=== PATIENT | female | born 1950 | race Caucasian/White ===

== ENCOUNTER → 2021-02-11 13:12 | Outpatient (CLI) | payer MEDICARE, OTHER, SELFPAY ==
--- NOTE | ~2021-02-11 | DEXA_ITS ---
Bone Density Report Name: PERLITA SANTOS Age: 70 Sex: Female Ethnicity: White Date of : 1950 Indication: postmenopausal; screening for osteoporosis; height loss; prior fracture; Referring Provider: Nick, Sandra Rodriguez Study: Bone densitometry was performed. Exam Date: February 11, 2021 Accession number: [id number] Bone Density: Region BMD T-score Z-score Classification AP Spine (L1-L4) 1.101 0.5 2.5 Normal Femoral Neck (Left) 0.616 -2.1 -0.4 Osteopenia Total Hip (Left) 0.766 -1.4 0.0 Osteopenia World Health Organization criteria for BMD impression classify patients as: Normal (T-score at or above -1.0), Osteopenia (T-score between -1.0 and -2.5), or Osteoporosis (T-score at or below -2.5). 10-year Fracture Risk: FRAX not reported because: Prior hip or vertebral fracture Clinical Information Provided by Patient: Have had a previous hip or vertebral fracture Has had a low trauma fracture Has used the following medications: Vitamin D, Calcium Patient maximum height was 68 Menopause Age: 57 Drinks caffeinated beverages Onset of menses at age 15 Number of children 3 Impression: The patient has low bone mass, based on the Left Femoral Neck T-score. The patient has risk factors, including: previous fracture. Discussion: INCREASED RISK OF FRACTURE DUE TO HISTORY OF FRACTURE. The patient's previous fracture puts the patient at high risk of a future fracture. In untreated patients, the risk of osteoporotic fracture increases approximately two-fold for each 1.0 SD decrease in T-score. Low bone density is not the only risk factor for fracture; also consider factors such as patient's age, frailty or poor health, risk of falling, risk of injury, previous osteoporotic fracture, family history of osteoporosis, cigarette smoking, low body weight, etc. Not everyone with a low trauma fracture has osteoporosis; osteomalacia and other metabolic bone disorders should also be considered. Patients who have osteoporosis should be evaluated for specific diseases and conditions (secondary causes) that may cause or contribute to bone loss and fracture risk. National Osteoporosis Foundation (NOF) recommends pharmacologic intervention for patients with a prior hip or vertebral fracture regardless of BMD T-score. The patient should follow a healthful lifestyle (good nutrition with adequate calcium and vitamin D, and appropriate weight-bearing exercise). Follow-Up: Consider a repeat BMD and Vertebral Fracture Assessment (VFA) exam in 2 years or sooner if medically necessary, to reassess this patient's status. Reported by: [facility] on 02/11/2021 2:04:00 PM. Reviewed, dictated and finalized at location [employer] [facility]
--- NOTE | ~2021-02-11 | MM_ITS ---
EXAMINATION: MM screening dariel BI w jacinda HISTORY: Screening mammogram TECHNIQUE: Craniocaudal and mediolateral oblique 3-D tomosynthesis images were obtained and synthetic 2-D images were generated. CAD analysis was submitted and interpreted. COMPARISON: No prior mammogram is available for comparison at this institution. BREAST PARENCHYMAL COMPOSITION: There are scattered areas of fibroglandular density. FINDINGS: RIGHT BREAST: There are indeterminate grouped calcifications in the posterior third of the outer joslyn st 9 cm from the nipple in the posterior third of the upper inner breast 10 cm from the nipple. LEFT BREAST: There are grouped indeterminate calcifications in the posterior third of the lower-outer breast. A mass is present in the middle third upper breast at the 12:00 location 5 cm from the nippl e. IMPRESSION: 1. Bilateral breast findings as described above which may represent the patient's baseline however no comparison is currently available. 2. Comparison with prior mammograms is necessary. BI-RADS Category 0: Incomplete: Needs comparison with prior mammograms. Reviewed, dictated and finalized at location A. GEMENT CONSULTANT IMPRESSION: 1. Bilateral breast findings as described above which may represent the patient 's baseline however no comparison is currently available. 2. Comparison with prior mammograms is necessary. BI-RADS Category 0: Incomplete: Needs comparison with prior mammograms.
== END ==
PROVIDERS: PCP Nurse Practitioner Family; Visit Provider Nurse Practitioner Family
DX: Z12.31 Encounter for screening mammogram for malignant neoplasm of breast (principal); Z78.0 Asymptomatic menopausal state; R92.8 Other abnormal and inconclusive findings on diagnostic imaging of breast; M85.852 Other specified disorders of bone density and structure, left thigh
CPT/HCPCS: 77063; 77067; 77080

== ENCOUNTER → 2021-07-21 14:07 | Outpatient (CLI) | payer MEDICARE, OTHER, SELFPAY ==
--- NOTE | ~2021-07-21 | MR_ITS ---
EXAMINATION: MR lumbar spine wo con DATE: 07/21/2021 14:41 INDICATION: Low back pain. Spondylosis, lumbar spine. TECHNIQUE: Magnetic resonance imaging (MRI) of the lumbar spine was performed without intravenous con trast. Sequences included sagittal T2-weighted FSE, sagittal T2-weighted FS FSE, sagittal T1-weighted FSE, and axial T2-weighted FSE. COMPARISON: None FINDINGS: There is 13 degrees levoscoliosis of lumbar spine. There is 3 mm retrolisthesis of L2 on L3 . There are Schmorl's nodes at multiple levels. There is mildly decreased disc height at L1-L2, moder ately decreased disc height at L2-L3, and mildly decreased disc height at L3-L4. The distal spinal co rd signal intensity is normal. The conus medullaris is at T12-L1. The following disc levels are speci fically discussed: L1-L2: The disc is bulging and has an annular fissure. There is mild bilateral facet joint osteoarthr itis. There is mild right neural foraminal stenosis. There is mild central canal stenosis. L2-L3: The disc is bulging and has an annular fissure. There is severe right and moderate left facet joint osteoarthritis. There is mild bilateral neural foraminal stenosis. There is mild central canal stenosis. L3-L4: The disc is bulging and has an annular fissure. There is severe bilateral facet joint osteoart hritis. There is mild bilateral neural foraminal stenosis. There is mild central canal stenosis. L4-L5: The disc is bulging and has an annular fissure. There is severe bilateral facet joint osteoart hritis. There is mild bilateral neural foraminal stenosis. There is mild central canal stenosis. L5-S1: The disc does not extend beyond the endplate margin. There is mild right and severe left facet joint osteoarthritis. There is no neural foraminal stenosis. There is no central canal stenosis. IMPRESSION: 1. Moderate lumbar spondylosis. 2. Lumbar levoscoliosis. Reviewed, dictated and finalized at location B.
== END ==
PROVIDERS: PCP Nurse Practitioner Family; Visit Provider Orthopaedic Surgery
DX: M43.06 Spondylolysis, lumbar region (principal)
CPT/HCPCS: 72148

== ENCOUNTER 2022-05-19 01:04 | Day surgery (SDC) | payer MEDICARE, BC, OTHER, SELFPAY ==
[2022-05-04 14:11] VITALS: BMI 26.6
[2022-05-19 06:21] VITALS: BP 157/93; PULSE 84; RESP 20; TEMP 36.3; O2SAT 98
[2022-05-19] MEDS: LACTATED RINGERS 1,000 ML 150 ML IV CONT (06:27)
--- NOTE | 2022-05-19 07:10 | P.PNAN_ITS ---
Anes - Initial Pre Proc Eval Procedure: Operation Date: 05/19/22 07:30 Proposed Procedures p Colonoscopy - Carlos López MD Date/Time: 05/19/22 07:10 Surgeon: Carlos López MD Pre Op Diagnosis: positive cologuard Patient Data Age: 71 Gender: F Height: 1.73 m Weight: 82.6 kg Last Vital Signs Temp 36.3 C L 05/19/22 06:21 Pulse 84 05/19/22 06:21 Resp 20 05/19/22 06:21 BP 157/93 H 05/19/22 06:21 Pulse Ox 98 05/19/22 06:21 O2 Del Method Room Air 05/19/22 06:21 Allergies Allergy/AdvReac Type Severity Reaction Status Date / Time latex Allergy Unknown Unknown Verified 05/19/22 06:19 Home Medications Medication Instructions Recorded Confirmed Type hydrochlorothiazide 25 mg tablet 25 mg PO DAILY 06/19/21 05/19/22 History irbesartan 300 mg tablet 300 mg PO DAILY 06/19/21 05/19/22 History rosuvastatin 5 mg tablet 5 mg PO DAILY 06/19/21 05/19/22 History Patient hx anesthesia problems: none Family hx anesthesia problems: none Results Review: All pre-operative results and documents have been reviewed as part of the pre- operative evaluation. [facility] Past Medical History Medical History (Updated 05/19/22 @ 07:10 by David Gordon MD) History of bruising easily History of stress test Hyperlipidemia Hypertension Spinal stenosis Surgical History Surgical History (Updated 06/19/21 @ 11:15 by Yuliet Pham) H/O: History of hip replacement (~2001) Right Hip Family History Family History (Updated 06/19/21 @ 11:16 by Yuliet Pham) Mother Cervical cancer Social History Social History (Updated 06/19/21 @ 11:17 by Yuliet Pham) Smoking status: Former smoker Tobacco type: cigarettes Additional smoking assessment comments: quit 5 years ago Alcohol intake: current Alcohol use details: social Substance use: never Substance use type: does not use Anes - Eval Final PreProcedure Day of Procedure 05/19/22 07:10 Patient weight: overweight Heart: regular rate and rhythm Lungs: clear to auscultation and normal air movement Airway: Mallampati scale class II Neurological: alert and oriented Last oral intake: >/= 8 hours ASA classification: II Emergent: no Anesthetic plan: proceed Anesthesia type and monitoring: general GIVS Results Review: All pre-operative results and documents have been reviewed as part of the pre- operative evaluation. Informed Consent: The patient's anesthetic plan and its attendant risks and benefits were discussed with the patient/family/POA. Questions were solicited and answers provided to the satisfaction of the patient/family/POA.
--- NOTE | 2022-05-19 07:28 | PM.HPGS ---
History of Present Illness History of Present Illness Consent: Risks, benefits, and alternatives have been discussed and questions answered. Patient agrees to proceed with procedure. Chief complaint: positive cologuard Narrative: Mary Storm is a 71 year old female here for first colonoscopy, had + cologuard Review of Systems Constitutional: Constitutional: Denies headache(s) and Denies weakness Eyes: Eyes: Denies blurry vision ENT: Reports Normal hearing present, Denies headache(s) and Denies neck pain Cardiovascular: Cardiovascular: Denies chest pain and Denies dyspnea Respiratory: Respiratory: Denies dyspnea Gastrointestinal: Gastrointestinal: Reports no additional gastrointestinal complaints Genitourinary: Genitourinary: Denies dysuria Musculoskeletal: Musculoskeletal: Denies neck pain Integumentary/Breasts: Skin/Breast: Denies dry skin Neurologic: Reports Normal hearing present, Denies headache(s) and Denies weakness Psychiatric: Psychiatric: Denies anxiety Endocrine: Endocrine: Denies change in body appearance Hematologic/Lymphatic: Hematologic/Lymphatic: Denies easy bleeding Allergic/Immunologic: Allergic/Immunologic: Denies urticaria PMFSH Past Medical History Medical History (Updated 05/19/22 @ 07:29 by Carlos López MD) History of bruising easily History of stress test Hyperlipidemia Hypertension Positive colorectal cancer screening using Cologuard test Spinal stenosis Surgical History Surgical History (Updated 06/19/21 @ 11:15 by Yuliet Pham) H/O: History of hip replacement (~2001) Right Hip Family History Family History (Updated 06/19/21 @ 11:16 by Yuliet Pham) Mother Cervical cancer Social History Social History (Updated 06/19/21 @ 11:17 by Yuliet Pham) Smoking status: Former smoker Tobacco type: cigarettes Additional smoking assessment comments: quit 5 years ago Alcohol intake: current Alcohol use details: social Substance use: never Substance use type: does not use Meds Home Medications and Allergies Home Medications Medication Instructions Recorded Confirmed Type hydrochlorothiazide 25 mg tablet 25 mg PO DAILY 06/19/21 05/19/22 History irbesartan 300 mg tablet 300 mg PO DAILY 06/19/21 05/19/22 History rosuvastatin 5 mg tablet 5 mg PO DAILY 06/19/21 05/19/22 History Allergies Allergy/AdvReac Type Severity Reaction Status Date / Time latex Allergy Unknown Unknown Verified 05/19/22 06:19 Vital Signs Vital Signs - 24 hr 05/19/22 06:21 Temperature 97.4 F L Pulse Rate 84 Respiratory Rate 20 Blood Pressure 157/93 H Pulse Oximetry 98 Oxygen Delivery Room Air Exam Const: General: comfortable and no acute distress HENMT: Face/Nose/Sinus: Normal nares present Eyes: General: appearance normal, both eyes and all related structures Neck: Neck: no JVD Resp: Auscultation: clear to auscultation bilaterally Cardio: Rate: regular rate Rhythm: regular rhythm GI: Inspection: non-distended GI Palp: Yes Soft to palpation Skin: General skin exam: normal color Neuro: General: gait normal Speech: normal speech Extrem: General: normal to inspection Psych: Mental Status: mental status grossly normal Assessment and Plan Assessment and plan (1) Positive colorectal cancer screening using Cologuard test: Code(s): R19.5 - Other fecal abnormalities Status: Acute Assessment and Plan: colonoscopy
[2022-05-19 07:51] VITALS: BP 131/67; PULSE 64; RESP 17; O2SAT 100
[2022-05-19 08:01] VITALS: BP 141/81; PULSE 66; RESP 17; O2SAT 97
[2022-05-19 08:11] VITALS: BP 145/82; PULSE 63; RESP 20; O2SAT 97
== END 2022-05-19 08:20 | disposition home or self-care (01) ==
PROVIDERS: PCP Nurse Practitioner Family; Visit Provider Internal Medicine Gastroenterology
PROC: 0DJD8ZZ Inspection of Lower Intestinal Tract, Via Natural or Artificial Opening Endoscopic (ICD-10-PCS; CPT 45378; principal; 2022-05-19 07:30)
DX: R19.5 Other fecal abnormalities (principal); D12.2 Benign neoplasm of ascending colon; D12.5 Benign neoplasm of sigmoid colon; D12.8 Benign neoplasm of rectum; K57.30 Diverticulosis of large intestine without perforation or abscess without bleeding; K64.8 Other hemorrhoids; I10 Essential (primary) hypertension; E78.5 Hyperlipidemia, unspecified; Z87.891 Personal history of nicotine dependence
CPT/HCPCS: 45385; 88305; J2704; J7120

== ENCOUNTER → 2022-06-16 11:30 | Outpatient (CLI) | payer MEDICARE, OTHER, SELFPAY ==
--- NOTE | ~2022-06-16 | MM_ITS ---
EXAMINATION: MM screening [facility] BI w jacinda HISTORY: Screening mammogram TECHNIQUE: Craniocaudal and mediolateral oblique 3-D tomosynthesis images were obtained and synthetic 2-D images were generated. CAD analysis was submitted and interpreted. COMPARISON: 02/11/2021, 03/23/2019, 03/21/2018 BREAST PARENCHYMAL COMPOSITION: There are scattered areas of fibroglandular density. FINDINGS: Again noted are stable bilateral breast calcifications and a stable left breast mass. No martin spicious mass, calcification, or architectural distortion are identified in either breast to suggest malignancy. There has been no suspicious interval change. IMPRESSION: 1. No mammographic evidence of malignancy. 2. Recommend routine screening mammography in one year. BI-RADS Category 2: Benign finding(s). Reviewed, dictated and finalized at location A.
== END ==
PROVIDERS: PCP Nurse Practitioner Family; Visit Provider Nurse Practitioner Family
DX: Z12.31 Encounter for screening mammogram for malignant neoplasm of breast (principal)
CPT/HCPCS: 77063; 77067

== ENCOUNTER 2022-12-08 08:03 | Outpatient (CLI) | payer MEDICARE, BC, OTHER, SELFPAY ==
--- NOTE | ~2022-12-08 | US_ITS ---
EXAMINATION: US renal BI DATE: 12/08/2022 09:33 INDICATION: Stage IIIB chronic kidney disease TECHNIQUE: Multiple ultrasound grayscale images of the kidneys were obtained. COMPARISON: None. FINDINGS: The right kidney measures 9.9 x 5.5 x 4.4 cm. The left kidney measures 10.7 x 4.5 x 4.5 cm. The kidne ys demonstrate normal echogenicity. 1.5 cm anechoic cyst at the lower pole of the left kidney. There is no hydronephrosis in either kidney. No stones identified. The bladder is normal with bilateral ur eteral jets visualized with color Doppler.. IMPRESSION: 1. 1.5 similar left renal cyst. Otherwise normal kidneys without hydronephrosis. Reviewed, dictated and finalized at location A. IMPRESSION: 1. 1.5 similar left renal cyst. Otherwise normal kidneys without hydronephrosi s.
[2022-12-08 09:55] LABS: Albumin Level 4.6 g/dL (3.5-5.1); Anion Gap 7 mmol/L (8-16); Blood Urea Nitrogen 30 mg/dL (7-17); Calcium 10.1 mg/dL (8.4-10.2); Carbon Dioxide 29 mmol/L (22-30); Chloride 102 mmol/L (98-107); Estimated Glomerular Filt Rate 49; Glucose 91 mg/dL (65-110); Phosphorus 3.5 mg/dL (2.5-4.5); Potassium 3.3 mmol/L (3.4-5.0); Sodium 138 mmol/L (137-145)
[2022-12-08 09:56] LABS: Creatinine Urine 40.4 mg/dL; Sodium Urine Random 54 meq/L; Total Protein Urine Random 92 mg/dL; Ur Ttl Prot Creatinine Ratio 2.28 mg/mg (0-0.20)
[2022-12-08 09:59] LABS: Complement C3 154 mg/dL (88-165)
[2022-12-11 08:57] LABS: Alpha 1 Globulin 0.4 g/dL (0.2-0.3); Beta 1 Globulin 0.5 g/dL (0.4-0.6); Gamma Globulin 0.9 g/dL (0.8-1.7); Protein, Total 7.2 g/dL (6.1-8.1)
[2022-12-11 11:51] LABS: Anti Glomerular Basement Memb <1.0 AI (<1.0)
[2022-12-11 23:14] LABS: ANCA Screen Negative (Negative)
[2022-12-14 00:32] LABS: Creatinine, Random Urine 39 mg/dL (20-275); Total Protein/Creatinine Ratio 1641 mg/g creat (24-184)
== END 2022-12-08 08:04 | disposition home or self-care (01) ==
PROVIDERS: PCP Nurse Practitioner Family; Visit Provider Internal Medicine Nephrology
DX: I12.9 Hypertensive chronic kidney disease with stage 1 through stage 4 chronic kidney disease, or unspecified chronic kidney disease (principal); N18.32 Chronic kidney disease, stage 3b; N28.1 Cyst of kidney, acquired
CPT/HCPCS: 36415; 76775; 80069; 82570; 83520; 84155; 84156; 84165; 84166; 84300; 86036; 86038; 86160; 86225

== ENCOUNTER 2023-04-16 10:10 | Outpatient (CLI) | payer MEDICARE, BC, OTHER, SELFPAY ==
[2023-04-16 11:28] LABS: Creatinine Urine 65.2 mg/dL; Total Protein Urine Random 133 mg/dL; Ur Ttl Prot Creatinine Ratio 2.04 mg/mg (0-0.20)
[2023-04-16 11:31] LABS: Albumin Level 4.4 g/dL (3.5-5.1); Anion Gap 9 mmol/L (8-16); Blood Urea Nitrogen 36 mg/dL (7-17); Calcium 10.1 mg/dL (8.4-10.2); Carbon Dioxide 27 mmol/L (22-30); Chloride 101 mmol/L (98-107); Estimated Glomerular Filt Rate 40; Glucose 92 mg/dL (65-110); Phosphorus 4.2 mg/dL (2.5-4.5); Sodium 137 mmol/L (137-145)
[2023-04-16 11:38] LABS: Parathyroid Intact 38.3 pg/mL (7.5-53.5)
[2023-04-16 11:44] LABS: Vitamin D 25 Hydroxy 49.5 ng/mL
== END 2023-04-16 10:11 | disposition home or self-care (01) ==
PROVIDERS: PCP Family Medicine; Visit Provider Internal Medicine Nephrology
DX: E55.9 Vitamin D deficiency, unspecified (principal); I12.9 Hypertensive chronic kidney disease with stage 1 through stage 4 chronic kidney disease, or unspecified chronic kidney disease; N18.31 Chronic kidney disease, stage 3a; N25.81 Secondary hyperparathyroidism of renal origin
CPT/HCPCS: 36415; 80069; 82306; 82570; 83970; 84156

== ENCOUNTER 2023-07-09 15:27 | Outpatient (CLI) | payer MEDICARE, BC, OTHER, SELFPAY ==
--- NOTE | ~2023-07-09 | MM_ITS ---
EXAMINATION: MM screening [facility] BI w jacinda HISTORY: Screening TECHNIQUE: Craniocaudal and mediolateral oblique 3-D tomosynthesis images were obtained and synthetic 2-D images were generated. CAD analysis was submitted and interpreted. COMPARISON: Comparison to multiple prior studies sequentially, with oldest reviewed study dated 03/21. BREAST PARENCHYMAL COMPOSITION: Not dense: There are scattered areas of fibroglandular density. FINDINGS: There is no evidence of suspicious mass, calcification, or architectural distortion to sugg est malignancy in either breast. There has been no suspicious interval change. IMPRESSION: 1. No mammographic evidence of malignancy. 2. Recommend routine screening mammography in one year. BI-RADS Category 1: Negative Reviewed, dictated and finalized at location B.
== END 2023-07-09 15:28 ==
LOC: MICIMG 15:28
PROVIDERS: PCP Family Medicine; Visit Provider Family Medicine
DX: Z12.31 Encounter for screening mammogram for malignant neoplasm of breast (principal)
CPT/HCPCS: 77063; 77067

== ENCOUNTER 2023-08-27 08:34 | Outpatient (CLI) | payer MEDICARE, BC, OTHER, SELFPAY ==
[2023-08-27 09:24] LABS: Albumin Level 4.5 g/dL (3.5-5.1); Anion Gap 12 mmol/L (4-12); Blood Urea Nitrogen 30 mg/dL (7-17); Calcium 9.4 mg/dL (8.4-10.2); Carbon Dioxide 25 mmol/L (22-30); Chloride 101 mmol/L (98-107); Estimated Glomerular Filt Rate 37; Glucose 90 mg/dL (65-110); Phosphorus 3.9 mg/dL (2.5-4.5); Potassium 3.8 mmol/L (3.4-5.0); Sodium 138 mmol/L (137-145)
[2023-08-27 09:25] LABS: Creatinine Urine 94.2 mg/dL; Total Protein Urine Random 171 mg/dL; Ur Ttl Prot Creatinine Ratio 1.82 mg/mg (0-0.20)
== END 2023-08-27 08:35 | disposition home or self-care (01) ==
LOC: ANHLAB 08:38
PROVIDERS: PCP Family Medicine; Visit Provider Internal Medicine Nephrology
DX: I12.9 Hypertensive chronic kidney disease with stage 1 through stage 4 chronic kidney disease, or unspecified chronic kidney disease (principal); N18.31 Chronic kidney disease, stage 3a
CPT/HCPCS: 36415; 80069; 82570; 84156

== ENCOUNTER 2024-03-09 10:15 | Outpatient (CLI) | payer MEDICARE, BC, OTHER, SELFPAY ==
--- OUTSIDE RECORDS SUMMARY | 2024-03-09 11:10 | XMS_ITS | Clinical Summary ---
Author Organization [facility] Address [address] Attn: Paola Prelupeter ADT [place]RI[place]YN [place] [address] Care Team Providers Care Awning Maker Name Role Phone Unavailable Primary Care Provider Unavailabl e Medications Irbesartan (AVAPRO) 300 mg tablet TAKE ONE TABLET BY MOUTH ONCE DAILY 90 Tablet 07/09/2021 2:50 PM CDT 07/09/2021 Active rosuvastatin (CRESTOR) 5 mg tablet Take 1 Tablet (5 mg) by mouth daily. 90 Tablet 3 12/14/2022 10:59 AM MUSEUM OR ZOO DIRECTOR 04/02/2022 Active dapagliflozin propanediol (Farxiga) 10 mg Tablet Take 1 Tablet (10 mg) by mouth daily. 90 Tablet 1 10/13/2022 Active Irbesartan (AVAPRO) 300 mg tablet Take 1 Tablet (300 mg) by mouth daily. 90 Tablet 3 01/23/2023 10:35 AM MUSEUM OR ZOO DIRECTOR 10/16/2022 Active calcium carbonate + vitamin D (Calcium 600 + D) 600 mg-10 mcg (400 unit) Tablet Take 1 tablet by mouth twice a day. 180 Tablet 1 04/12/2023 Active rosuvastatin (CRESTOR) 5 mg tablet Take 1 tablet by mouth every day at bedtime 90 Tablet 1 04/14/2023 11:46 AM MUSEUM OR ZOO DIRECTOR 04/12/2023 Active Irbesartan (AVAPRO) 300 mg tablet Take 1 Tablet (300 mg) by mouth daily. 90 Tablet 1 01/19/2024 2:35 PM MUSEUM OR ZOO DIRECTOR 10/19/2023 Active calcium carbonate + vitamin D (Calcium 600 + D) 600 mg-10 mcg (400 unit) Tablet Take 1 tablet by mouth twice daily as directed. 180 Tablet 1 11/02/2023 Active hydroCHLOROthiaz rui 25 mg tablet Take 1 Tablet (25 mg) by mouth daily in the morning. 90 Tablet 1 02/23/2024 10:15 AM MUSEUM OR ZOO DIRECTOR 11/02/2023 Active Irbesartan (AVAPRO) 300 mg tablet Take 1 Tablet (300 mg) by mouth daily. 90 Tablet 1 11/02/2023 Active rosuvastatin (CRESTOR) 5 mg tablet Take 1 Tablet (5 mg) by mouth daily at bedtime. 90 Tablet 1 11/02/2023 Active hydroCHLOROthiaz rui 25 mg tablet Take 1 Tablet (25 mg) by mouth daily in the morning. 90 Tablet 1 11/23/2023 Active Irbesartan (AVAPRO) 300 mg tablet Take 1 Tablet (300 mg) by mouth daily. 90 Tablet 1 11/23/2023 Active rosuvastatin (CRESTOR) 5 mg tablet Take 1 Tablet (5 mg) by mouth daily at bedtime. 90 Tablet 1 11/24/2023 2:50 PM CDT 11/23/2023 Active Encounters Date Type Department Care Team Description 12/08/2023 External Device Data ST[facility] ABSTRACTION Provider, Abstract from Last 3 Months Social History Tobacco Use Types Packs/Day Years Used Date Smoking Tobacco: Never Assessed Comments Unknown Sex and Gender Information Value Date Recorded Sex Assigned at Not on file Legal Sex Female 3:27 PM CDT Gender Identity Not on file Sexual Orientation Not on file Plan of Treatment Health Maintenance Due Date Last Done Comments DTAP/TDAP/TD VACCINES (1 - Tdap) 08/26/1971 BREAST CANCER SCREENING 1992 COLORECTAL SCREENING 1997 Colorectal Cancer Screening 1997 FIT-DNA Q 3 years 1997 FIT/FOBT Q 1 year 1997 Flex Sig/CT Colonography Q 5 years 1997 PNEUMOCOCCAL VACCINE 65+ YEARS (1 of 1 - PCV) 08/26/19 03 ZOSTER VACCINE (1 of 2) 2002 RSV VACCINE (60+ or ) (1 - Risk 60-74 years 1-dose series) 2012 OSTEOPOROSIS SCREENING 2017 INFLUENZA VACCINE (#1) 2023 [facility] RX [facility]
[2024-03-09 11:17] LABS: Cholesterol 150 mg/dL (0-200); HDL Direct 63 mg/dL; Triglycerides 139 mg/dL (<150)
[2024-03-09 11:18] LABS: Albumin Level 4.3 g/dL (3.5-5.1); Anion Gap 13 mmol/L (4-12); Blood Urea Nitrogen 31 mg/dL (7-17); Calcium 9.8 mg/dL (8.4-10.2); Carbon Dioxide 25 mmol/L (22-30); Chloride 103 mmol/L (98-107); Estimated Glomerular Filt Rate 47; Glucose 85 mg/dL (65-110); Phosphorus 3.6 mg/dL (2.5-4.5); Potassium 3.7 mmol/L (3.4-5.0); Sodium 141 mmol/L (137-145)
[2024-03-09 11:28] LABS: LDL Cholesterol Direct 48 mg/dL
[2024-03-09 11:30] LABS: Parathyroid Intact 45.7 pg/mL (14.5-75.2)
[2024-03-09 11:30] LABS: Creatinine Urine 85.3 mg/dL
[2024-03-09 11:43] LABS: Vitamin D 25 Hydroxy 50.6 ng/mL
[2024-03-09 11:46] LABS: Total Protein Urine Random 342 mg/dL; Ur Ttl Prot Creatinine Ratio 4.01 mg/mg (0-0.20)
== END 2024-03-09 10:16 | disposition home or self-care (01) ==
PROVIDERS: PCP Family Medicine; Visit Provider Internal Medicine Nephrology
DX: I12.9 Hypertensive chronic kidney disease with stage 1 through stage 4 chronic kidney disease, or unspecified chronic kidney disease (principal); N18.32 Chronic kidney disease, stage 3b; E78.2 Mixed hyperlipidemia; E83.52 Hypercalcemia
CPT/HCPCS: 36415; 80061; 80069; 82306; 82570; 83970; 84156

== ENCOUNTER 2024-09-06 09:28 | Outpatient (CLI) | payer MEDICARE, BC, OTHER, SELFPAY ==
--- OUTSIDE RECORDS SUMMARY | 2024-09-06 09:50 | XMS_ITS | Patient Health Record ---
Author Organization [facility] Address [address] [place] [address] Care Team Providers Care Refrigeration Manager Name Role Phone Gracy NORTON Primary Care Provider UnavailClint Espinal Unavailable [phone] Allergies Allergen (clinical drug ingredient) Drug/Non Drug Allergy documented on EMR Reaction Allergy Type Onset Date Status tape - SURGICAL TAPE (uncoded) rash Allergy Active Reason For Referral No Information Medications Medication SIG (Take, Route, Frequency, Duration) Notes Start Date End Date Status Irbesartan Active Social History Tobacco Use: Social History Observation Description Date Details (start date - stop date) Former Smoker NA - NA Tobacco Use/Smoking Question Answer Notes Are you a former smoker How long has it been since you last smoked? > 10 years Additional Findings: Tobacco Non-User Current no n-smoker Alcohol Screen (Audit-C) Question Answer Notes Did you have a drink contain ing alcohol in the past year? Yes How often did you have a dri nk containing alcohol in the past year? 2 to 4 times a month (2 points) How many drinks did you have on a typical day when you were drinking in the past year? 1 or 2 drinks (0 point) How often did you have 6 or more drinks on one occasion in the past year? Never (0 point) Points 2 Interpretation Negative Plan Of Treatment Pending Test Test Name Order Date X ray : SI joint, left 02/28/2018 X ray : SI joint, right 02/28/2018 X ray : Spines, lumbar 2 views 9 Insurance Providers Payer Name Payer Address Payer Phone Subscriber Number Group Number Insured Name Patient Relationship to Insured Coverage Start Date Coverage End Date Blue Cross and Blue Shield [facility] [address] [place]QUE[place] [id number] PERLITA SANTOS Self - patient is the insured 0 Medicare of [place] - [facility] [address] [place] [address] [id number] TOM PERLITA Self - patient is the insured 8 for Life [id number] [address] [place] [phone] [id number] Self - patient is the insured Medical (General) History Medical History History ICD Code HYPERTENSION; CHRONIC LOW BACK PAIN; RIG HT HIP/FEMUR FRACTURE Surgical History Surgery Date(Month/Year) ; RIGHT HIP/FEMUR FRACTURE; RIG HT HIP JOINT REPLACEMENT
--- OUTSIDE RECORDS SUMMARY | 2024-09-06 09:50 | XMS_ITS | Clinical Summary ---
Author Organization [facility] Address [address] Attn: Paola Prelude ADT KRISTYN VELAZQUEZ [place] [address] Care Team Providers Care Solutions Sales Consultant Name Role Phone Unavailable Primary Care Provider Unavailabl e Medications Irbesartan (AVAPRO) 300 mg tablet TAKE ONE TABLET BY MOUTH ONCE DAILY 90 Tablet 07/09/2021 2:50 PM CDT 07/09/2021 Active rosuvastatin (CRESTOR) 5 mg tablet Take 1 Tablet (5 mg) by mouth daily. 90 Tablet 3 12/14/2022 10:59 AM ECOMMERCE PROJECT MANAGER 04/02/2022 Active dapagliflozin propanediol (Farxiga) 10 mg Tablet Take 1 Tablet (10 mg) by mouth daily. 90 Tablet 1 10/13/2022 Active Irbesartan (AVAPRO) 300 mg tablet Take 1 Tablet (300 mg) by mouth daily. 90 Tablet 3 01/23/2023 10:35 AM ECOMMERCE PROJECT MANAGER 10/16/2022 Active calcium carbonate + vitamin D (Calcium 600 + D) 600 mg-10 mcg (400 unit) Tablet Take 1 tablet by mouth twice a day. 180 Tablet 1 04/12/2023 Active rosuvastatin (CRESTOR) 5 mg tablet Take 1 tablet by mouth every day at bedtime 90 Tablet 1 04/14/2023 11:46 AM ECOMMERCE PROJECT MANAGER 04/12/2023 Active calcium carbonate + vitamin D (Calcium 600 + D) 600 mg-10 mcg (400 unit) Tablet Take 1 tablet by mouth twice daily as directed. 180 Tablet 1 11/02/2023 Active hydroCHLOROthiaz rui 25 mg tablet Take 1 Tablet (25 mg) by mouth daily in the morning. 90 Tablet 1 02/23/2024 10:15 AM ECOMMERCE PROJECT MANAGER 11/02/2023 Active Irbesartan (AVAPRO) 300 mg tablet [...] mouth daily. 90 Tablet 1 11/23/2023 Active hydroCHLOROthiaz rui 25 mg tablet Take 1 Tablet (25 mg) by mouth daily in the morning. 90 Tablet 1 08/28/2024 2:24 PM CDT 05/09/2024 Active Irbesartan (AVAPRO) 300 mg tablet Take 1 Tablet (300 mg) by mouth daily. 90 Tablet 1 05/09/2024 Active rosuvastatin (CRESTOR) 5 mg tablet Take 1 Tablet (5 mg) by mouth daily at bedtime. 90 Tablet 1 05/09/2024 Active rosuvastatin (CRESTOR) 5 mg tablet Take 1 Tablet (5 mg) by mouth daily at bedtime. 90 Tablet 1 06/20/2024 11:42 AM CDT 06/19/2024 Active Irbesartan (AVAPRO) 300 mg tablet Take 1 Tablet (300 mg) by mouth daily. 90 Tablet 07/25/2024 10:57 AM CDT 07/24/2024 Active Encounters Date Type Department Care Team Description 08/01/2024 External Device Data [facility] ABSTRACTION Provider, Abstract [...] Colonography Q 5 years 1997 PNEUMOCOCCAL VACCINE 50+ YEARS (1 of 1 - PCV) 08/26/19 03 ZOSTER VACCINE (1 of 2) 2002 RSV VACCINE (60+ or ) (1 - Risk 60-74 years 1-dose series) 2012 OSTEOPOROSIS SCREENING 2017 INFLUENZA VACCINE (#1) 2024 Insurance RX [facility] [employer]
[2024-09-06 10:55] LABS: Albumin Level 4.3 g/dL (3.5-5.1); Anion Gap 11 mmol/L (4-12); Blood Urea Nitrogen 33 mg/dL (7-17); Calcium 9.7 mg/dL (8.4-10.2); Carbon Dioxide 23 mmol/L (22-30); Chloride 101 mmol/L (98-107); Estimated Glomerular Filt Rate 41; Glucose 115 mg/dL (65-110); Potassium 3.5 mmol/L (3.4-5.0); Sodium 135 mmol/L (137-145)
[2024-09-06 11:10] LABS: Total Protein Urine Random 186 mg/dL; Ur Ttl Prot Creatinine Ratio 2.41 mg/mg (0-0.20)
== END 2024-09-06 09:29 | disposition home or self-care (01) ==
PROVIDERS: Visit Provider Internal Medicine Nephrology
DX: I12.9 Hypertensive chronic kidney disease with stage 1 through stage 4 chronic kidney disease, or unspecified chronic kidney disease (principal); N18.32 Chronic kidney disease, stage 3b; R80.9 Proteinuria, unspecified
CPT/HCPCS: 36415; 80069; 82570; 84156

== ENCOUNTER 2024-11-01 12:27 | Outpatient (CLI) | payer MEDICARE, BC, OTHER, SELFPAY ==
--- NOTE | ~2024-11-01 | MM_ITS ---
EXAMINATION: MM screening [facility]iel BI w jacinda HISTORY: Screening TECHNIQUE: Craniocaudal and mediolateral oblique 3-D tomosynthesis images were obtained and synthetic 2-D images were generated. CAD analysis was submitted and interpreted. COMPARISON: 06/16/2022 BREAST PARENCHYMAL COMPOSITION: There are scattered areas of fibroglandular density. FINDINGS: There is no evidence of suspicious mass, calcification, or architectural distortion to suggest malignancy. There has been no suspicious interval change. IMPRESSION: 1. No mammographic evidence of malignancy. Recommend routine screening mammography in one year. BI-RADS Category 2: Benign finding(s) Reviewed, dictated and finalized at location Q. IMPRESSION: 1. No mammographic evidence of malignancy. Recommend routine screening mammogra phy in one year. BI-RADS Category 2: Benign finding(s)
== END 2024-11-01 12:28 | disposition home or self-care (01) ==
LOC: MICIMG 12:28
PROVIDERS: PCP Family Medicine; Visit Provider Family Medicine
DX: Z12.31 Encounter for screening mammogram for malignant neoplasm of breast (principal)
CPT/HCPCS: 77063; 77067

== ENCOUNTER 2024-11-16 08:57 | Outpatient (CLI) | payer MEDICARE, BC, OTHER, SELFPAY ==
[2024-11-16 09:28] LABS: Hematocrit 34.7 % (37.0-47.0); Hemoglobin 11.5 g/dL (12.0-15.0); Immature Granulocyte Percent A 1.0 % (0-0.5); Lymphocytes Absolute Auto 1.34 K/mm3 (0.9-3.2); Mean Corpuscular HGB Conc 33.1 g/dl (32-36); Mean Corpuscular Hemoglobin 29.7 pg (26-34); Mean Corpuscular Volume 89.7 fl (80-100); Nucleated Red Blood Cells Absolute Auto 0.000 K/mm3 (0.0-0.012); Nucleated Red Blood Cells Perc 0.0 % (0.0-0.2); Platelet Count Result 314 k/mm3 (150-375); Red Blood Count 3.87 M/mm3 (4.2-5.4); White Blood Count 8.0 K/mm3 (4.5-10.0)
[2024-11-16 09:36] LABS: Add Urine Microscopic? YES; Appearance Urine Cloudy (Clear); Glucose Urine UA Negative (Negative); Leukocyte Esterase Ur 3+ LEU/UL (Negative); Nitrate Urine Negative (Negative); Non Pathogenic Casts 0-2; Specific Grav Ur 1.014 (1.001-1.035)
[2024-11-16 09:42] LABS: Hemoglobin A1C 5.0 % (<5.7)
[2024-11-16 09:51] LABS: Alanine Aminotransferase 20 U/L (6-35); Albumin Level 4.2 g/dL (3.5-5.1); Alkaline Phosphatase 93 U/L (38-126); Anion Gap 10 mmol/L (4-12); Aspartate Amino Transferase 29 U/L (14-36); Bilirubin,Total 0.4 mg/dL (0.2-1.3); Blood Urea Nitrogen 38 mg/dL (7-17); Calcium 9.7 mg/dL (8.4-10.2); Carbon Dioxide 25 mmol/L (22-30); Chloride 103 mmol/L (98-107); Cholesterol 164 mg/dL (0-200); Estimated Glomerular Filt Rate 33; Glucose 88 mg/dL (65-110); HDL Direct 60 mg/dL; Potassium 3.7 mmol/L (3.4-5.0); Sodium 138 mmol/L (137-145); Total Protein 7.5 g/dL (6.3-8.2); Triglycerides 100 mg/dL (<150)
[2024-11-16 10:22] LABS: Thyroid Stimulating Hormone Reflex 0.663 uIU/mL (0.465-4.68)
== END 2024-11-16 08:58 | disposition home or self-care (01) ==
PROVIDERS: PCP Family Medicine; Visit Provider Family Medicine
DX: E78.5 Hyperlipidemia, unspecified (principal); I10 Essential (primary) hypertension; M85.80 Other specified disorders of bone density and structure, unspecified site; E66.3 Overweight
CPT/HCPCS: 36415; 80053; 80061; 81001; 82306; 83036; 84443; 85025; 87077; 87086; 87186